=== PATIENT | female | born 1955 | race Caucasian/White ===

== ENCOUNTER 2018-07-16 08:31 | Inpatient (IN) | payer MEDICARE ==
[~2018-07-16] VITALS: Ht 149.9 cm; Wt 77.1 kg
--- NOTE | 2018-07-16 08:46 | NUR ---
patient OSMIN walked in to PD and depress no active plans. on room air, breathing evenly andunlabored. Connected to the monitor and pulse ox. Kept comfortable, will continue to monitor accordingly.
--- NOTE | 2018-07-16 08:47 | NUR ---
urine collected and sent to lab
[2018-07-16 08:58] LABS: BASOPHILS % (AUTO) 0.5 % (0.0-2.0); EOSINOPHILS % (AUTO) 0.9 % (0.0-6.0); HEMATOCRIT 43 % (33-45); HEMOGLOBIN 14.7 g/dL (11.5-14.8); LYMPHOCYTES # (AUTO) 1.4 /CMM (0.8-4.8); LYMPHOCYTES % (AUTO) 16.7 % (20.0-44.0); MEAN CORPUSCULAR HGB CONC 34 g/dl (31.0-36.0); MEAN CORPUSCULAR VOLUME 90 fL (82-100); MONOCYTES # (AUTO) 0.6 /CMM (0.1-1.30); MONOCYTES % (AUTO) 6.6 % (2.0-12.0); NEUTROPHILS # (AUTO) 6.5 /CMM (1.8-8.9); NEUTROPHILS % (AUTO) 75.3 % (43.0-81.0); PLATELET COUNT (AUTO) 283 /CMM (150-450); RED BLOOD CELL COUNT(AUTO) 4.77 MIL/uL (4.0-5.2); WHITE BLOOD COUNT (AUTO) 8.6 K/uL (4.3-11.0)
[2018-07-16 08:59] LABS: BILIRUBIN,URINE Negative (NEGATIVE); BLOOD, URINE Negative Ery/uL (NEGATIVE); COLOR,URINE Yellow (YELLOW); KETONES,URINE Trace (NEGATIVE); LEUKOCYTE ESTERASE ,URINE Negative (NEGATIVE); NITRITE, URINE Negative (NEGATIVE); PROTEIN,URINE 30 mg/dl (NEGATIVE); UGLUCOSE Negative (NEGATIVE); UROBILINOGEN,URINE 0.2 EU/dL (0.2)
--- NOTE | 2018-07-16 09:01 | NUR ---
Paged Kory Livingston for PET eval
[2018-07-16 09:02] LABS: APPEARANCE,URINE Hazy (CLEAR)
[2018-07-16 09:05] LABS: CALCIUM, SERUM 9.6 mg/dL (8.5-10.1); CARBON DIOXIDE 30 mmol/L (21-32); CHLORIDE 106 mmol/L (98-107); CREATININE 0.8 mg/dL (0.6-1.3); GLUCOSE 120 mg/dL (74-106); POTASSIUM 4.1 mmol/L (3.5-5.1); SODIUM SERUM 142 mmol/L (136-145); UREA NITROGEN, BLOOD 13 mg/dL (7-18)
[2018-07-16 09:10] LABS: ALANINE AMINOTRANSFERASE 22 U/L (12-78); ALBUMIN 3.7 g/dL (3.4-5.0); ALKALINE PHOSPHATASE 76 U/L (46-116); ASPARTATE AMINOTRANSFERASE 13 U/L (15-37); BILIRUBIN,DIRECT 0.1 mg/dL (0.0-0.2); BILIRUBIN,TOTAL 0.5 mg/dL (0.2-1.0); TOTAL PROTEIN, SERUM 7.1 g/dL (6.4-8.2)
[2018-07-16 09:11] LABS: ACETAMINOPHEN 0 ug/ml (10-30); ALCOHOL, BLOOD < 3 mg/dL (0-0); SALICYLATE 1.3 mg/dL (2.8-20.0)
[2018-07-16 09:13] LABS: BACTERIA,URINE Rare /HPF (None Seen); SQUAMOUS EPITHELIAL CELL,UR Moderate /HPF (None Seen); WBC,URINE 0-3 /HPF (0-3)
--- NOTE | 2018-07-16 10:24 | NUR ---
art on site for psych eval.
[2018-07-16] MEDS ORDERED: LEVO125T8 PO (11:06)
--- NOTE | 2018-07-16 11:34 | NUR ---
Report given to Yassine strategic alliances manager Essie for continuity of care
[2018-07-16 12:00] VITALS: BP 140/83
--- NOTE | 2018-07-16 12:00 | NUR ---
PASSENGER INTERLINE CLERK NOTES ADMITTED PATIENT FROM ER 62 Y/OLD FEMALE ON GPS Dx. OF PSYCHOSIS, DTS, AND 5150 HOLD. PATIENT A/O X3/4, STABLE NO ACUTE RESPIRATORY DISTRESS. FACE TO FACE ASSESSMENT DONE PATIENT DEPRESS, HAS VAGUE THOUGHTS OF SELF HARM, PATIENT HAS NO PLANING AT THIS TIME TO HARM SELF. ENCOURAGED PATIENT TO EXPRESS FEELINGS AND CONCERNS. V/S TAKEN T-97.7, P-62, R-18, BP-140/83, O2-98 ROOM AIR. SKIN ASSESSMENT DONE INTACT. PATIENT AMBULATORY SELF CARE. UNIT ORIENTATION DONE. PATIENTS RIGHTS REVIEWED WITH THE PATIENT, AND BOOKLET GIVEN. PATIENT SIGN PAPERWORK. Dr LIVE, AND ANDRÉS AWARE OF NEW PATIENT AND MEDICATION. BELONGING AND CONTRABAND CHECKED. PATIENT HAS NO FAMILY. CONTINUED MONITORING.
--- NOTE | 2018-07-16 12:12 | NUR ---
pt transfered to [facility] via wheelchair
--- NOTE | 2018-07-16 12:52 | NUR ---
GPS/RN-NOTES DR. LIVE MADE AWARE OF THE PATIENT ADMISSION. MEDICATION STANDING ORDERS WAS NOTED AND CARRIED OUT.
[2018-07-16] MEDS ORDERED: LORAZEPAM 0.5 MG TABLET PO PRN (13:00)
[2018-07-16] MEDS ORDERED: MAG HYDROX/AL HYDROX/SIMETH 30 ML UDC PO PRN (13:00)
[2018-07-16] MEDS ORDERED: TEMAZEPAM 7.5 MG CAPSULE PO PRN (13:00)
[2018-07-16] MEDS ORDERED: MAGNESIUM HYDROXIDE 30 ML UDC PO PRN (13:00)
[2018-07-16] MEDS ORDERED: ACETAMINOPHEN 325 MG TABLET PO PRN (13:00)
[2018-07-16] MEDS ORDERED: DEXTROSE 50%-WATER 50 ML DISP.SYRIN IV PRN (15:30)
[2018-07-16] MEDS ORDERED: INSULIN REGULAR, HUMAN 100 UNIT/ML 3 ML VIAL SQ PRN (15:30)
[2018-07-16] MEDS ORDERED: CLONIDINE HCL 0.1 MG TABLET PO PRN (15:30)
[2018-07-16 16:00] VITALS: BP 140/77
[2018-07-16] MEDS ORDERED: BLOOD SUGAR DIAGNOSTIC 1 EACH STRIP IN SCH (17:30)
[2018-07-16 19:49] VITALS: BP 126/60
[2018-07-17 08:00] VITALS: BP 112/73
[2018-07-17 08:14] LABS: ALBUMIN 3.2 g/dL (3.4-5.0); BILIRUBIN,TOTAL 0.5 mg/dL (0.2-1.0); CALCIUM, SERUM 9.4 mg/dL (8.5-10.1); CREATININE 0.7 mg/dL (0.6-1.3); TOTAL PROTEIN, SERUM 6.5 g/dL (6.4-8.2)
[2018-07-17 08:19] LABS: THYROID STIMULATING HORMONE 12.12 uIU/mL (0.358-3.74)
[2018-07-17] MEDS: LEVOTHYROXINE SODIUM 125 MCG TABLET PO SCH (08:54)
--- NOTE | 2018-07-17 12:34 | NUR ---
Group note: Pt attended a group session on 07/16/18 at 3PM discussing depression and how it has impacted their life. S: Pt stated, I think that there were many factors in my life that caused me to be depressed. You know? With my family and even the people in my life right now seem to impose their opinions about my life to me and say negative things. O: Pt was present during the group session and was engaged. Pt appeared to be in a depressed mood and presented with a calm affect. Pt maintained appropriate eye contact and had an appropriate tone of voice. A: Pt expressed that she feels like people have always treated her in a way that she would not want to be treated by them. She stated that people have constantly told her negative things about her life that lead to her depression because she has a lack of self worth. P: Pt will continue milieu treatment and medication stabilization.
--- NOTE | 2018-07-17 13:30 | NUR ---
PT. STATES RT. EAR CLOGGED AND SOME BALANCE PROBLEMS-Luis HERBERT NP INFORMED AND SPOKE TO PT.WILL FOLLOW UP TOMORROW.
[2018-07-17 16:00] VITALS: BP 126/72
--- NOTE | 2018-07-17 16:10 | NUR ---
Group note: Pt attended a group session on 07/17/18 at 3PM discussing their support systems and how it is has impacted their life. S: Pt stated, My pilar is my support system. Everything can be messed up in your life but but you will always have your pilar. Pilar is like unconditional love and I always have hope that pilar will allow me to continue living and working towards fixing my life. O: Pt was present during the group session and was engaged. Pt appeared to be in a euthymic mood and presented with a calm affect. Pt maintained appropriate eye contact and had an appropriate tone of voice. A: Pt expressed that she believes that her pilar has helped her in many situations in her life when she felt like she had no motivation left regarding her life. She stated that the love she feels from her God has allowed her to love herself which is what allowed her to get help before deciding to take her own life. P: Pt will continue milieu treatment and medication stabilization.
[2018-07-17 20:27] VITALS: BP 137/63
[2018-07-17] MEDS: SERTRALINE HCL 50 MG TABLET PO SCH (21:44)
[2018-07-18 08:00] VITALS: BP 127/72
[2018-07-18] MEDS: LEVOTHYROXINE SODIUM 125 MCG TABLET PO SCH (09:05)
[2018-07-18] MEDS: SERTRALINE HCL 50 MG TABLET PO SCH (09:05)
--- NOTE | 2018-07-18 12:44 | NUR ---
Initial Discharge Plan: Pt was residing with a friend in her home located at [address] [place] [address]. Per pt, she would like to live in an independent living facility and go to work from there. SW will work with the pt and the MD regarding appropriate discharge planning. SW will form a safe and proper discharge.
--- NOTE | 2018-07-18 12:45 | NUR ---
NAY faxed the pts face sheet to [facility] to the fax number: [phone].
--- NOTE | 2018-07-18 15:11 | NUR ---
GROUP NOTE: Pt attended group on this present day, group topic was; "stress management and how stress has impacted your life and your current hospitalization." S: "My living environment is what caused me stress and that is why I ended up here. I moved to [place] from [facility] so that I could receive more resources but my living environment was not that good." O: Pt did not provide much information and also appeared anxious. Pt maintained minimal eye contact and was looking at her hands when speaking. A: Pt stated that she needed to find a different place to live and that perhaps that would help with her stress. Pt appeared to not have gained much awareness of her current hospitalization and her suicidal ideation and has poor insight. Pt minimized her feelings. P: Pt will continue milieu treatment and medication stabilization.
[2018-07-18 16:00] VITALS: BP 153/82
--- NOTE | 2018-07-18 18:00 | NUR ---
cooperative and med compliant.
[2018-07-18 20:00] VITALS: BP 129/73
[2018-07-19 08:00] VITALS: BP 127/74
[2018-07-19] MEDS: LEVOTHYROXINE SODIUM 125 MCG TABLET PO SCH (08:00)
[2018-07-19] MEDS: SERTRALINE HCL 50 MG TABLET PO SCH (08:12)
[2018-07-19 16:00] VITALS: BP 123/72
--- NOTE | 2018-07-19 16:34 | NUR ---
Group Note: Pt attended a group session on 07/19/18 at 2PM discussing goals for when they are in the hospital and goals for once they are discharged. S: Pt stated, My goal is to find employment once I am discharged to the independent living. 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 When I help others, it allows me to feel worthy and helps with my depression." O: Pt was present during the group session and was engaged. Pt appeared to be in a depressed mood and presented with a calm affect. Pt maintained appropriate eye contact and had an appropriate tone of voice. A: Pt expressed that she understands that her need to volunteer in an area that she is passionate about such as helping others is important because it gives her the opportunity to like herself for who she is. Pt stated that when she feels like she is being a good person it is much easier for her to not be depressed. P: Pt will continue milieu treatment and medication stabilization.
[2018-07-19 20:00] VITALS: BP 140/78
[2018-07-20 08:00] VITALS: BP 127/72
[2018-07-20] MEDS: SERTRALINE HCL 50 MG TABLET PO SCH (09:01)
[2018-07-20] MEDS: LEVOTHYROXINE SODIUM 75 MCG TABLET PO SCH (09:01)
[2018-07-20] MEDS: METFORMIN 500 MG TABLET PO SCH ×2 (12:46→17:46)
--- NOTE | 2018-07-20 13:53 | NUR ---
Group Note: Pt attended a group session on 07/20/18 at 2PM discussing stress management strategies for when they are in the hospital and for once they are discharged. S: Pt stated, I like to meditate. It really helps me to calm down when Im feeling really anxious." O: Pt was present during the group session and was engaged. Pt appeared to be in a depressed mood and presented with a calm affect. Pt maintained appropriate eye contact and had an appropriate tone of voice. A: Pt expressed that she understands that her needs to remember to utilize these techniques when she is feeling stressed and agitated. Pt stated that when she remembers to practice meditation she feels more calm and in peace. P: Pt will continue milieu treatment and medication stabilization.
--- NOTE | 2018-07-20 14:55 | NUR ---
Group Note: Pt attended a group session on 07/20/18 at 2PM discussing stress management strategies for when they are in the hospital and for once they are discharged. S: Pt stated, I like to work on my breathing when Im feeling stressed. It really helps to bring me back to a good place." O: Pt was present during the group session and was engaged. Pt appeared to be in a relaxed mood and presented with a calm affect. Pt maintained appropriate eye contact and had an appropriate tone of voice. A: Pt expressed that she suffers from panic attacks but has learned to use the 4-7-8 breathing technique to help her get back to a calm state. Pt understands that she needs to continue to practice her breathing technique in order for it to be a regular habit. P: Pt will continue milieu treatment and medication stabilization.
[2018-07-20 16:00] VITALS: BP 120/73
[2018-07-20 20:00] VITALS: BP 150/77
[2018-07-20 20:01] VITALS: BP 150/77
[2018-07-21 08:00] VITALS: BP 121/72
[2018-07-21] MEDS: SERTRALINE HCL 50 MG TABLET PO SCH (09:30)
[2018-07-21] MEDS: METFORMIN 500 MG TABLET PO SCH ×2 (09:30→17:11)
[2018-07-21] MEDS: LEVOTHYROXINE SODIUM 75 MCG TABLET PO SCH (09:30)
[2018-07-21 16:00] VITALS: BP 135/76
[2018-07-21 19:37] VITALS: BP 125/74
[2018-07-22 08:00] VITALS: BP 122/71
[2018-07-22] MEDS: METFORMIN 500 MG TABLET PO SCH ×2 (08:49→17:24)
[2018-07-22] MEDS: SERTRALINE HCL 50 MG TABLET PO SCH (08:49)
[2018-07-22] MEDS: LEVOTHYROXINE SODIUM 75 MCG TABLET PO SCH (08:54)
[2018-07-22 16:00] VITALS: BP 120/73
[2018-07-22] MEDS ORDERED: DEXTROSE 50%-WATER 50 ML DISP.SYRIN IV PRN (17:30)
[2018-07-22] MEDS: BLOOD SUGAR DIAGNOSTIC 1 EACH STRIP IN SCH ×2 (17:46→21:53)
--- NOTE | 2018-07-22 18:14 | NUR ---
new orders for accuchecks noted; pt notified; implementation initiated at 1730.
[2018-07-22 21:05] VITALS: BP 128/74
[2018-07-22] MEDS: INSULIN REGULAR, HUMAN 100 UNIT/ML 3 ML VIAL SQ PRN (21:48)
[2018-07-23 08:00] VITALS: BP 122/76
[2018-07-23] MEDS: LEVOTHYROXINE SODIUM 75 MCG TABLET PO SCH (08:22)
[2018-07-23] MEDS: BLOOD SUGAR DIAGNOSTIC 1 EACH STRIP IN SCH ×4 (08:22→21:04)
[2018-07-23] MEDS: SERTRALINE HCL 50 MG TABLET PO SCH (08:22)
[2018-07-23] MEDS: METFORMIN 500 MG TABLET PO SCH ×2 (08:22→16:40)
[2018-07-23] MEDS: INSULIN REGULAR, HUMAN 100 UNIT/ML 3 ML VIAL SQ PRN ×4 (08:23→21:30)
--- NOTE | 2018-07-23 15:28 | NUR ---
GROUP NOTE: Pt attended group therapy on 07/23/18 at 2:00pm and discussed concerns with her discharge for tomorrow 07/24/18. S: "When I moved all my stuff was left behind and I only have one change of clothes is it something you can help me with. I just need another change of clothes." O: Pt appeared euthymic and had a smile on her face. A: Pt gained insight into her mental illness and expressed intense feelings of getting back to normal. Pt expressed wanting to work and getting connected to the community. m P: Pt will continue medication compliance.
[2018-07-23 16:00] VITALS: BP 137/86
[2018-07-23 20:20] VITALS: BP 117/67
--- NOTE | 2018-07-23 21:30 | NUR ---
SNACKS Patient in bed, FSBS 159 mg/dl given 2 units ISS. Provided snacks, patient is compliant with medication. Safety checks continues.
--- NOTE | 2018-07-24 06:07 | NUR ---
END OF SHIFT NOTES Patient slept well, approximately 9 hours of sleep. Planned discharge to independent living today. Maintained safety.
[2018-07-24] MEDS: BLOOD SUGAR DIAGNOSTIC 1 EACH STRIP IN SCH (07:50)
[2018-07-24 08:00] VITALS: BP 107/68
[2018-07-24] MEDS: SERTRALINE HCL 50 MG TABLET PO SCH (08:46)
[2018-07-24] MEDS: METFORMIN 500 MG TABLET PO SCH (08:46)
[2018-07-24] MEDS: LEVOTHYROXINE SODIUM 75 MCG TABLET PO SCH (08:46)
--- NOTE | 2018-07-24 11:37 | NUR ---
GPS/RN-NOTES PATIENT DISCHARGE TO INDEPENDENT LIVING FACILITY TODAY. DR. LIVE WAS IN THE UNIT AT THIS TIME AND GAVE ORDERS,ALSO DR. LUCAS ( DIRECTOR OF RECRUITING) MADE AWARE OF THE DISCHARGE.PATIENT ALERT ORIENTED X4 AMBULATORY WITH STEADY GAIT. PATIENT DID NOT VERBALIZE SI/HI,DENIES VISUAL AUDITORY HALLUCINATIONS AT THE TIME OF THE DISCHARGE. ALL DISCHARGE MEDICATIONS WAS REVIEWED WITH THE PATIENT WITH UNDERSTANDING.ALL DISCHARGE PAPERS WAS SIGN BY THE PATIENT. PATIENT WAS ADVISE TO CALL 911 IN CASE OF EMERGENCY.PATIENT LEFT THE UNIT IN STABLE CONDITION WITH ALL BELONGINGS. MUSIC INTERN BY FACILITY STAFF (JANESSA) VIA PRIVATE CAR. PATIENT WAS ACCOMPANIED IN THE LOBBY FOR SAFETY.PER NAY GARCIA) PATIENT'S SISTER BOUCHRA MADE AWARE OF THE DISCHARGE. Addendum: 07/24/18 at 1448 by NICHOLAS KAISER RN CORRECTION ON MY ABOVE NOTES. PATIENT HAS NO FAMILY TO NOTIFY ON THE DISCHARGE.
--- NOTE | 2018-07-24 12:15 | NUR ---
Discharge Note: Pt was discharged to [facility] located at [address] [place] [address]; ([phone]). Pt was picked up by the facility around 11AM. Upon discharge, the pt appeared to be in a euthymic mood and presented with a calm affect. Pt denied both suicidal and homicidal ideation as well as auditory and visual hallucinations. Pt was provided with the homeless resources and the pt signed the homeless waiver. Pt was referred to [facility] located at [address] [place] [address]; for psychiatric services and a fax was sent to: . Pt was also referred to gunner's mate g, Dr. Edgar Wadsworth, located at [address], [place] [address]; , and a fax was sent to: .
== END 2018-07-24 11:35 | DRG 881 ==
LOC: ER 08:33 → GPS 11:13
PROVIDERS: ADMIT Psychiatry & Neurology Psychiatry; ATTEND Nurse Practitioner Acute Care
DX: F32.9 Major depressive disorder, single episode, unspecified (principal); E11.65 Type 2 diabetes mellitus with hyperglycemia; R45.851 Suicidal ideations; F23 Brief psychotic disorder; E03.9 Hypothyroidism, unspecified; I10 Essential (primary) hypertension
CPT/HCPCS: 36415; 80048-TC; 80053-TC; 80061-TC; 80076-TC; 80305; 81000-TC; 82962-TC; 84439-TC; 84443-TC; 85025-TC; 87081-TC; G0480; J1815